=== PATIENT | female | born 1995 | race African-American/Black ===

== ENCOUNTER 2017-08-06 13:54 | Emergency (ER) | payer MEDICAID ==
[~2017-08-06] VITALS: Ht 167.6 cm; Wt 80.0 kg
[2017-08-06 14:19] VITALS: BP 135/78
== END 2017-08-06 17:12 | disposition home or self-care (01) ==
LOC: ER 15:15
DX: J10.1 Influenza due to other identified influenza virus with other respiratory manifestations (principal); Z90.49 Acquired absence of other specified parts of digestive tract
CPT/HCPCS: 87804; 99284